=== PATIENT | male | born 1990 | race Caucasian/White ===

== ENCOUNTER 2020-08-06 10:48 | Emergency (ER) | payer OTHER ==
[~2020-08-06] VITALS: Ht 167.6 cm; Wt 106.6 kg
[2020-08-06 10:57] VITALS: BP_SYST 132
--- NOTE | 2020-08-06 11:00 | NUR ---
Patient to ER bed 8 to gown for evaluation. Side rails up. Report given to ROSANA BOBO.
--- NOTE | 2020-08-06 11:01 | NUR ---
Pt. brought himself here with c/o heart palpitations and numbness and tingling to Left arm, denies chest pain at this time, states just doesn't feel right, has seen heart doctor already because this keeps occurring denies anxiety
--- NOTE | 2020-08-06 11:09 | NUR ---
ER at bedside examining patient.
[2020-08-06] MEDS ORDERED: METOPROLOL TARTRATE 25 MG TABLET PO ONE (11:30)
--- NOTE | 2020-08-06 12:00 | NUR ---
MEDICATED W/ LOPRESSOR PER MD ORDER
[2020-08-06 12:25] LABS: CALCIUM 8.9 mg/dL (8.4-11.0); CREATININE 1.07 mg/dL (0.55-1.30); POTASSIUM 3.7 mmol/L (3.5-5.1)
[2020-08-06 12:32] LABS: ALBUMIN 3.8 g/dL (3.4-4.8); TOTAL BILIRUBIN 0.8 mg/dL (0.0-1.0)
[2020-08-06] MEDS ORDERED: METO-442 PO (12:41)
--- NOTE | 2020-08-06 12:50 | NUR ---
Patient given written and verbal discharge instructions and verbalizes understanding. ER MD discussed with patient the results and treatment provided. Patient in stable condition. ID arm band removed. Patient educated on pain management and to follow up with PMD. Pain Scale 0/10. Opportunity for questions provided and answered. Medication side effect fact sheet provided.
[2020-08-06 13:05] VITALS: BP_SYST 119
== END 2020-08-06 13:00 | disposition home or self-care (01) ==
LOC: SED 10:48
DX: R00.2 Palpitations (principal); R20.2 Paresthesia of skin; Z79.899 Other long term (current) drug therapy
CPT/HCPCS: 36415; 80053; 93005; 99284